=== PATIENT | female | born 1990 | race Asian ===

== ENCOUNTER 2017-10-01 14:15 | Emergency (ER) | payer OTHER ==
[~2017-10-01] VITALS: Ht 172.7 cm; Wt 104.3 kg
[2017-10-01 14:17] VITALS: TEMP 98.8
[2017-10-01 15:00] VITALS: BP 148/73
== END 2017-10-01 15:11 | disposition home or self-care (01) ==
LOC: ED 14:15
DX: K92.1 Melena (principal)
CPT/HCPCS: 82272; 99282